=== PATIENT | female | born 1950 | race Asian ===

== ENCOUNTER 2017-01-11 18:22 | Inpatient (IN) | payer BC, OTHER ==
[~2017-01-11] VITALS: Ht 152.4 cm; Wt 56.2 kg
--- NOTE | 2017-01-11 18:28 | NUR ---
[facility] FOR MEDICAL CLEARANCE FOR GPS ADMISSION ON 833 HOLD
[2017-01-11 18:46] LABS: BASOPHILS # (AUTO) 0.2 /CMM (0.0-0.2); BASOPHILS % (AUTO) 1.9 % (0.0-2.0); EOSINOPHILS % (AUTO) 0.5 % (0.0-6.0); HEMATOCRIT 40 % (33-45); HEMOGLOBIN 13.7 g/dL (11.5-14.8); LYMPHOCYTES # (AUTO) 0.6 /CMM (0.8-4.8); LYMPHOCYTES % (AUTO) 6.8 % (20.0-44.0); MEAN CORPUSCULAR HEMOGLOBIN 33 PG (26.0-33.0); MEAN CORPUSCULAR HGB CONC 34 g/dl (31.0-36.0); MEAN CORPUSCULAR VOLUME 96 fL (82-100); MONOCYTES # (AUTO) 0.7 /CMM (0.1-1.30); MONOCYTES % (AUTO) 7.6 % (2.0-12.0); NEUTROPHILS # (AUTO) 7.4 /CMM (1.8-8.9); NEUTROPHILS % (AUTO) 83.2 % (43.0-81.0); PLATELET COUNT (AUTO) 159 /CMM (150-450); RDW COEFFICIENT OF VARIATION 12.4 (11.5-15.0); RED BLOOD CELL COUNT(AUTO) 4.19 MIL/uL (4.0-5.2); WHITE BLOOD COUNT (AUTO) 8.9 K/uL (4.3-11.0)
[2017-01-11 18:56] LABS: CALCIUM, SERUM 8.8 mg/dL (8.5-10.1); CARBON DIOXIDE 27 mmol/L (21-32); CHLORIDE 104 mmol/L (98-107); CREATININE 0.7 mg/dL (0.6-1.3); GLUCOSE 149 mg/dL (74-106); POTASSIUM 3.5 mmol/L (3.5-5.1); SODIUM SERUM 138 mmol/L (136-145); UREA NITROGEN, BLOOD 9 mg/dL (7-18)
[2017-01-11 19:04] LABS: ALANINE AMINOTRANSFERASE 18 U/L (12-78); ALCOHOL, BLOOD < 3 mg/dL (0-0); ALKALINE PHOSPHATASE 77 U/L (46-116); ASPARTATE AMINOTRANSFERASE 22 U/L (15-37); BILIRUBIN,DIRECT 0.2 mg/dL (0.0-0.2); BILIRUBIN,TOTAL 0.9 mg/dL (0.2-1.0); TOTAL PROTEIN, SERUM 7.2 g/dL (6.4-8.2)
[2017-01-11 19:06] LABS: ACETAMINOPHEN < 10 ug/ml (10-30); SALICYLATE < 2.8 mg/dL (2.8-20.0)
--- NOTE | 2017-01-11 19:20 | NUR ---
RECEIVED PT ON 1 POINT RESTRAINT PER PROTOCOL. PT AAOX2. VSS.
--- NOTE | 2017-01-11 20:26 | NUR ---
REPORT GIVEN TO ASAF CASTANEDA FOR GPS 219.
[2017-01-11 20:45] VITALS: BP 137/98
[2017-01-11] MEDS ORDERED: MAGNESIUM HYDROXIDE 30 ML UDC PO PRN (21:00)
[2017-01-11] MEDS ORDERED: MAG HYDROX/AL HYDROX/SIMETH 30 ML UDC PO PRN (21:00)
[2017-01-12 01:41] VITALS: BP 137/98
[2017-01-12 08:00] VITALS: BP 113/79
[2017-01-12] MEDS ORDERED: DONE10TA44 PO (09:33)
[2017-01-12] MEDS ORDERED: RISP0.253 PO (09:33)
[2017-01-12] MEDS: risperiDONE-M 0.5 MG TAB.RAPDIS PO SCH ×2 (11:45→21:36)
--- NOTE | 2017-01-12 12:08 | NUR ---
Initial Discharge Note: Patient resides at home with her Lara lau. [address] [place] [address]. ([phone]). bone worker spoke to patient's Fabricio Luther who stated that he was looking for a memory care unit and was working with a placement agency. bone worker will help form a safe and proper discharge.
[2017-01-12 16:13] VITALS: BP 121/89
[2017-01-12 20:00] VITALS: BP 118/68
[2017-01-12] MEDS: DONEPEZIL 5 MG TABLET PO SCH (21:36)
[2017-01-12] MEDS: ZOLPIDEM TARTRATE 5 MG TABLET PO PRN (21:36)
[2017-01-12] MEDS: LORAZEPAM 0.5 MG TABLET PO PRN (21:36)
[2017-01-13 08:00] VITALS: BP 122/75
[2017-01-13] MEDS: risperiDONE-M 0.5 MG TAB.RAPDIS PO SCH ×2 (08:53→21:32)
[2017-01-13 16:00] VITALS: BP 157/84
[2017-01-13 20:00] VITALS: BP 122/76
[2017-01-13] MEDS: ZOLPIDEM TARTRATE 5 MG TABLET PO PRN (21:43)
[2017-01-13] MEDS: DONEPEZIL 5 MG TABLET PO SCH (21:43)
[2017-01-14 08:11] VITALS: BP 142/90
[2017-01-14] MEDS: risperiDONE-M 0.5 MG TAB.RAPDIS PO SCH ×2 (08:33→21:16)
--- NOTE | 2017-01-14 12:00 | NUR ---
[id number]: NOTIFIED DR. MOULTON ABOUT LAB RESULTS ON 01/10/17: TOTAL PROTEIN= 6.2, ALBUMIN= 3.0. NO NEW ORDERS GIVEN AT THIS TIME
[2017-01-14] MEDS: LORAZEPAM 0.5 MG TABLET PO PRN (15:06)
[2017-01-14 15:41] VITALS: BP 150/90
[2017-01-14 19:58] VITALS: BP 125/81
[2017-01-14] MEDS: DONEPEZIL 5 MG TABLET PO SCH (21:16)
[2017-01-15] MEDS: LORAZEPAM 0.5 MG TABLET PO PRN (05:14)
--- NOTE | 2017-01-15 05:59 | NUR ---
[id number]: GAVE ATIVAN 1 MG PO DUE TO INCREASED ANXIETY UPON PT REQUEST AND WILL CONTINUE TO MONITOR FOR EFFECTIVENESS OF MEDICATION
--- NOTE | 2017-01-15 06:57 | NUR ---
RN NOTES PATIENT IN BED, RESTING COMFORTABLY, NO SOB, NO DISTRESS, NO BEHAVIOR DISTURBANCE DURING SHIFT, REMAIND 1:1 SITTER AT BED SITE FOR SAFETY
[2017-01-15 08:22] VITALS: BP 141/85
[2017-01-15] MEDS: risperiDONE-M 0.5 MG TAB.RAPDIS PO SCH ×3 (08:25→21:01)
--- NOTE | 2017-01-15 13:18 | NUR ---
particleboard factory worker received a call from Gurwinder Saleem ([phone]) who is a crisis family management advocate who is working with the family and helping them find placement. Gurwinder Saleem stated that he would follow-up with social science teacher tomorrow.
--- NOTE | 2017-01-15 13:25 | NUR ---
market research worker attempted to contact patient's Fabricio Luther , however he was unavailable. market research worker left him a detailed message with direct contact information. market research worker will follow-up
--- NOTE | 2017-01-15 13:38 | NUR ---
long term care social worker spoke to patient's daughter Yenni ([phone]) who wanted information regarding patient. long term care social worker updated her on the case. Patient's daughter was satisfied with the information given. long term care social worker will follow-up.
[2017-01-15 15:23] LABS: APPEARANCE,URINE CLEAR (CLEAR); BILIRUBIN,URINE NEGATIVE (NEGATIVE); BLOOD, URINE NEGATIVE Ery/uL (NEGATIVE); COLOR,URINE YELLOW (YELLOW); KETONES,URINE NEGATIVE (NEGATIVE); LEUKOCYTE ESTERASE ,URINE 1+ (NEGATIVE); NITRITE, URINE NEGATIVE (NEGATIVE); PROTEIN,URINE NEGATIVE (NEGATIVE); UGLUCOSE NEGATIVE (NEGATIVE); UROBILINOGEN,URINE 0.2 EU/dL (0.2)
[2017-01-15 15:29] LABS: BACTERIA,URINE None seen /HPF (None Seen); RBC,URINE 0-2 /HPF (0-2); SQUAMOUS EPITHELIAL CELL,UR Few /HPF (None Seen)
[2017-01-15 15:40] VITALS: BP 109/61
[2017-01-15 19:46] VITALS: BP 145/92
[2017-01-15] MEDS: DONEPEZIL 5 MG TABLET PO SCH (21:01)
[2017-01-16 08:00] VITALS: BP 157/90
[2017-01-16] MEDS: risperiDONE-M 0.5 MG TAB.RAPDIS PO SCH ×3 (09:06→21:54)
[2017-01-16] MEDS: ACETAMINOPHEN 325 MG TABLET PO PRN (11:49)
--- NOTE | 2017-01-16 11:49 | NUR ---
computer recycling worker spoke to patient's Fabricio Luther , and informed him that patient will be discharged tomorrow. Patient's was agreeable and will pick her up at 1:00PM tomorrow.
--- NOTE | 2017-01-16 11:50 | NUR ---
[id number]: GAVE TYLENOL 650 MG PO DUE TO ABDOMINAL PAIN 08/02 UPON PT REQUEST AND WILL CONTINUE TO MONITOR FOR EFFECTIVENESS OF MEDICATION
--- NOTE | 2017-01-16 11:59 | NUR ---
UR Update: SW left RUNNING SPECIALIST ASSIGNED: JUAN R PH: [phone] [phone] a concurrent review (voicemail). fur floor worker will follow-up.
--- NOTE | 2017-01-16 13:45 | NUR ---
[id number]: PT IS 66 YEARS OLD FEMALE IN DISCHARGE TO [facility] AT [address] [facility] [place]. [address] IN STABLE CONDITION. COMPLAINT WITH MEDICATIONS, COOPERATIVE WITH TREATMENT PLANS. PT DENIES SI/HI AND INSTRUCTED TO GO TO THE CLOSEST ER IF DEVELOPING SI/HI. BEHAVIOR IMPROVED, PSYCHIATRIC TX PLANS MET, MEDICAL TX PLANS DEFERRED CONTINUAL MONITORING. EDUCATED PT AFTER CARE PLAN AND COPY PROVIDED. RETURNED PERSONAL BELONGINGS TO PT. MEDICATIONS RECONCILED WITH DR. DE JESUS AND DR. MOULTON. REPORT GIVEN TO CYNDY FROM [facility] FOR CONTINUITY OF CARE. PT SIGNED DISCHARGE PAPERWORK. SKIN ASSESSMENT DONE. PT LEFT VIA AMBULANCE. Addendum: 01/16/17 at 1753 by CATHERINE SEGOVIA RN WRONG ENTRY
--- NOTE | 2017-01-16 14:27 | NUR ---
social contact worker spoke to patient's daughter Yenni ([phone]) who stated that she feels that patient is not ready to be discharged. Yenni stated that she felt that her mother needed to be here for the entire 14 day hold. Yenni wanted to include Gurwinder Saleem (patient advocate) in the conversation. Per Gurwinder Saleem, patient cannot be discharged and needed to be in the unit for longer observation as he stated that she is not ready to be in a memory care unit. social contact worker asked patient's daughter if she wanted help finding placement, patient's daughter stated that she wanted to speak to the psychiatrist before she could make a decision as to where the patient should be placed. social contact worker will follow-up.
[2017-01-16 16:09] VITALS: BP 117/76
[2017-01-16 20:42] VITALS: BP 143/88
[2017-01-16] MEDS: DONEPEZIL 5 MG TABLET PO SCH (21:54)
[2017-01-16] MEDS: SENNOSIDES/DOCUSATE SODIUM 1 TAB TABLET PO SCH (21:54)
[2017-01-16] MEDS: ZOLPIDEM TARTRATE 5 MG TABLET PO PRN (22:45)
[2017-01-17] MEDS: risperiDONE-M 0.5 MG TAB.RAPDIS PO SCH ×3 (08:43→21:14)
[2017-01-17 08:51] VITALS: BP 114/73
--- NOTE | 2017-01-17 11:22 | NUR ---
binding bench worker spoke to patient's Fabricio Luther who wanted an update on patient's discharge date and time. binding bench worker informed Fabricio that there is a live review scheduled with the insurance ([employer] [facility]) at 12:30pm and depending on the insurance, they may or may not authorize anymore coverage for inpatient psychiatric hospitalization. binding bench worker informed Fabricio that if the insurance does not authorize anymore hospital days than he would have to pick-up the patient or he would be billed for the hospital stay. Fabricio was agreeable and stated that he would wait to here back from the social worker aide with the insurance decision. binding bench worker will follow-up.
[2017-01-17] MEDS: ACETAMINOPHEN 325 MG TABLET PO PRN (12:09)
--- NOTE | 2017-01-17 12:45 | NUR ---
UR Update: SW left GLUING MACHINE FEEDER ASSIGNED: JUAN R PH: [phone] EXT [phone] a concurrent review (voicemail). biscuit factory worker will follow-up.
[2017-01-17 16:00] VITALS: BP 148/81
[2017-01-17 20:19] VITALS: BP 131/82
[2017-01-17] MEDS: SENNOSIDES/DOCUSATE SODIUM 1 TAB TABLET PO SCH (21:13)
[2017-01-17] MEDS: DONEPEZIL 5 MG TABLET PO SCH (21:14)
[2017-01-17] MEDS: ZOLPIDEM TARTRATE 5 MG TABLET PO PRN (22:40)
[2017-01-18] MEDS: risperiDONE-M 0.5 MG TAB.RAPDIS PO SCH (08:41)
[2017-01-18 09:10] VITALS: BP 152/87
--- NOTE | 2017-01-18 13:26 | NUR ---
GPS JOB SERVICE CONSULTANT NOTE: [place] [address] [facility] [address] [place] [address] PT EMELINA AT THE SIDE. [address] DE LA GARZA DC HOLD DC HOME WITH TX DR RANGEL NOTIFIED AND AGREED FOR DC. EXIT CARE PRINTED, SIGN, AND GIVEN TO PATIENT , MEDICATIONS EXPLAIN AND GIVEN TO PT , ALL BELONGINGS AND VALUABLES RETURNED TO PT. PT REFUSED SKIN ASSESSMENT PT IN STABLE CONDITION, VSS WNL, DENIES SI/HI AT THE TIME OF DISCHARGE, NO S/S DISTRESS NOTED .
--- NOTE | 2017-01-18 14:08 | NUR ---
Discharge Note: Patient was discharged home [address] [facility] [place] [address]. ([phone]). Patient's Fabricio Luther was notified and picked her up via private vehicle. Patient's mood was appropriate upon discharge. Patient denied suicidal and homicidal ideations. Patient and patient's agreed to follow-up with her psychiatrist Dr. Abbe Dockery [address] [facility] [facility] [address], [place] [address], within 30 days. Facilitated info to IDT team who are in agreement with discharge arrangement. The multidisciplinary exitcare form was done, printed, signed, and given to the patient.
--- NOTE | 2017-01-18 14:45 | NUR ---
new car make ready worker filed APS report Intake ID #: [id number]
--- NOTE | 2017-01-18 16:25 | NUR ---
UR Update: left discharge summary (voicemail) for VOLUNTEER SERVICES SPECIALIST ASSIGNED: JUAN R PH: [phone] EXT [phone].
== END 2017-01-18 13:15 | disposition home or self-care (01) | DRG 885 ==
LOC: ER 18:29 → GPS 20:14
PROVIDERS: ADMIT Psychiatry & Neurology Psychiatry; ATTEND Psychiatry & Neurology Psychiatry
DX: F29 Unspecified psychosis not due to a substance or known physiological condition (principal); F02.81 Dementia in other diseases classified elsewhere, unspecified severity, with behavioral disturbance; G93.40 Encephalopathy, unspecified; G30.9 Alzheimer's disease, unspecified; Z73.6 Limitation of activities due to disability; F41.9 Anxiety disorder, unspecified; F32.9 Major depressive disorder, single episode, unspecified; Z79.899 Other long term (current) drug therapy; K59.00 Constipation, unspecified
CPT/HCPCS: 36415; 70450-TC; 80048-TC; 80076-TC; 81000-TC; 84443-TC; 85025-TC; 87081-TC; 87086-TC; A4606; G0480; Z7610